=== PATIENT | female | born 1955 | race Caucasian/White ===

== ENCOUNTER → 2016-08-01 | Outpatient (CLI) | payer BC ==
[~2016-08-01] MED LIST: CETIRIZINE; SERTRALINE
== END ==
LOC: MC.RAD 10:40
DX: Z12.31 Encounter for screening mammogram for malignant neoplasm of breast (principal)

== ENCOUNTER → 2017-02-08 | Outpatient (CLI) | payer BC | LOC: MC.RAD 10:51 | DX: N64.4 Mastodynia (principal); Z98.890 Other specified postprocedural states; Z85.3 Personal history of malignant neoplasm of breast ==

== ENCOUNTER → 2018-02-21 | Outpatient (CLI) | payer BC | LOC: MC.RAD 08:00 | DX: Z12.31 Encounter for screening mammogram for malignant neoplasm of breast (principal); Z98.82 Breast implant status; Z98.890 Other specified postprocedural states ==

== ENCOUNTER → 2019-04-01 | Outpatient (CLI) | payer BC | LOC: MC.RAD 16:49 | DX: Z12.31 Encounter for screening mammogram for malignant neoplasm of breast (principal) ==

== ENCOUNTER → 2020-09-02 | Outpatient (CLI) | payer BC | LOC: MC.RAD 10:22 | DX: Z12.31 Encounter for screening mammogram for malignant neoplasm of breast (principal) ==

== ENCOUNTER → 2021-10-25 | Outpatient (CLI) | payer MEDICARE, BC | LOC: MC.RAD 10:10 | DX: Z12.31 Encounter for screening mammogram for malignant neoplasm of breast (principal) ==

== ENCOUNTER → 2023-02-08 | Outpatient (CLI) | payer MEDICARE, BC | LOC: COL.CARD 14:46 | DX: R06.02 Shortness of breath (principal); Z87.891 Personal history of nicotine dependence ==

== ENCOUNTER → 2024-02-06 | Outpatient (CLI) | payer MEDICARE, BC | LOC: MC.RAD 08:47 | DX: N63.21 Unspecified lump in the left breast, upper outer quadrant (principal) ==